=== PATIENT | female | born 1995 | race Caucasian/White ===

== ENCOUNTER 2024-03-05 15:24 | Emergency (ER) | payer MEDICAID | END 2024-03-05 18:45 | disposition left against medical advice (07) | LOC: ER 15:25 | DX: Z53.21 Procedure and treatment not carried out due to patient leaving prior to being seen by health care provider (principal) ==

== ENCOUNTER 2024-04-05 16:43 | Emergency (ER) | payer MEDICAID ==
[~2024-04-05] VITALS: Ht 170.2 cm; Wt 49.4 kg
[2024-04-05 18:05] VITALS: BP 117/80; PULSE 71; RESP 16; TEMP 98; O2SAT 97
== END 2024-04-05 18:06 | disposition home or self-care (01) ==
LOC: ER 16:44
DX: S06.0XAA Concussion with loss of consciousness status unknown, initial encounter (principal); R42 Dizziness and giddiness; M54.2 Cervicalgia; H53.149 Visual discomfort, unspecified; W22.8XXA Striking against or struck by other objects, initial encounter; Y93.89 Activity, other specified; Y92.89 Other specified places as the place of occurrence of the external cause; Y99.8 Other external cause status
CPT/HCPCS: 70450; 72125; 99284

== ENCOUNTER 2024-05-11 12:37 | Emergency (ER) | payer MEDICAID ==
[~2024-05-11] VITALS: Ht 170.2 cm; Wt 50.9 kg
[2024-05-11 13:00] VITALS: BP 142/90; PULSE 70; RESP 16; TEMP 98.1; O2SAT 97
[2024-05-11] MEDS ORDERED: ketorolac trometh 15mg/ml vial 15 MG/ML ML IM ONE (16:10)
== END 2024-05-11 16:35 | disposition home or self-care (01) ==
LOC: ER 12:37
DX: G44.309 Post-traumatic headache, unspecified, not intractable (principal)
CPT/HCPCS: 99281; 99284; 99285